=== PATIENT | female | born 1970 | race Caucasian/White ===

== ENCOUNTER 2017-03-07 13:26 | Emergency (ER) | payer OTHER ==
[2017-03-07 13:53] VITALS: BMI 30.4
[2017-03-07 14:24] LABS: BASOPHIL 0.4 % (0-2.0); EOSINOPHIL 0.8 % (0-4.5); MCH 28.8 pg (25.7-33.7); MCHC 32.5 g/dl (32.0-36.0); MEAN CELL VOLUME 88.4 fl (80-96); MEAN PLT VOLUME 7.9 fl (7.5-11.1); NEUTROPHILS 82.4 % (42.8-82.8); PLATELET COUNT 214 K/MM3 (134-434); RDW 13.8 % (11.6-15.6); WHITE BLOOD COUNT 14.2 K/mm3 (4.0-10.0)
[2017-03-07 14:42] LABS: URINE APPEARANCE CLOUDY; URINE BILIRUBIN NEGATIVE (NEGATIVE); URINE COLOR LTYELLOW; URINE GLUCOSE (UA) NEGATIVE (NEGATIVE); URINE KETONE NEGATIVE (NEGATIVE); URINE NITRITE NEGATIVE (NEGATIVE); URINE UROBILINOGEN NEGATIVE E.U./dl (0.2-1.0)
[2017-03-07 14:46] LABS: ALBUMIN 3.5 g/dl (3.4-5.0); ANION GAP 12 (8-16); BILIRUBIN,TOTAL 0.5 mg/dL (0.2-1.0); CALCIUM 8.7 mg/dL (8.5-10.1); CO2 22 mmol/L (21-32); CREATININE 1.3 mg/dL (0.55-1.02); GLUCOSE,RANDOM 90 mg/dL (74-106); SGPT/ALT 19 U/L (12-78); TOT PROT 7.8 g/dl (6.4-8.2)
[2017-03-07 14:47] LABS: ALK PHOS 114 U/L (45-117)
[2017-03-07 14:49] LABS: SGOT/AST 34 U/L (15-37)
[2017-03-07 14:50] LABS: URINE BLOOD 2+ (NEGATIVE); URINE LEUK ESTERASE 3+ (NEGATIVE); URINE PROTEIN 1+ (NEGATIVE)
[2017-03-07 14:58] LABS: URINE BACTERIA MANY /hpf (NONE SEEN); URINE MUCUS RARE; URINE RBC 19 /hpf (0-3); URINE WBC 441 /hpf (3-5)
[2017-03-07] MEDS ORDERED: LEVOFLOXACIN 750 MG IVPB 150 ML IVPB ONE ×2 (15:17→15:28)
[2017-03-07] MEDS ORDERED: amLODIPine BESYLATE 10 MG TABLET (FP) PO ONE (15:30)
[2017-03-07] MEDS ORDERED: LISINOPRIL 20 MG TABLET (FP) PO ONE (15:30)
[2017-03-07] MEDS ORDERED: traMADol HCL 50 MG TABLET PO ONE (15:39)
--- NOTE | 2017-03-07 15:39 | PDOC ---
History of Present Illness - General History Source: Patient - History of Present Illness Timing/Duration: reports: constant Quality: reports: severe Abdominal Pain Onset Location: reports: flank <Keke GrahamGordon - Last Filed: 03/07/17 17:39> <Mick Starkey - Last Filed: 03/08/17 09:31> - General Chief Complaint: Pain, Acute Stated Complaint: HIGH BLOOD PRESSURE Time Seen by Provider: 03/07/17 14:00 Past History - Past Medical History Anemia: Yes HTN: Yes - Surgical History Appendectomy: Yes - Psycho/Social/Smoking Cessation Hx Anxiety: No Suicidal Ideation: No Smoking Status: No Smoking History: Never smoked Number of Cigarettes Smoked Daily: 0 Hx Alcohol Use: No Drug/Substance Use Hx: No Substance Use Type: None <Keke GrahamGordon - Last Filed: 03/07/17 17:39> <Mick Starkey - Last Filed: 03/08/17 09:31> - Past Medical History Allergies/Adverse Reactions: Allergies Allergy/AdvReac Type Severity Reaction Status Date / Time ampicillin [Ampicillin] Allergy Rash Verified 03/07/17 13:53 Home Medications: Ambulatory Orders Lisinopril 20 mg PO DAILY #0 tablet 02/13/12 Allopurinol [Zyloprim -] 100 mg PO DAILY 09/23/15 Amlodipine Besylate [Norvasc] 10 mg PO DAILY 09/23/15 Allopurinol [Zyloprim -] 100 mg PO DAILY #30 tablet 03/07/17 Amlodipine Besylate [Norvasc -] 5 mg PO DAILY #30 tablet 03/07/17 Ciprofloxacin [Cipro -] 500 mg PO Q12H #14 tablet 03/07/17 Lisinopril [Prinivil] 20 mg PO DAILY #30 tablet 03/07/17 Review of Systems - Review of Systems Constitutional: No: Chills, Fever ABD/GI: No: Nausea, Vomiting : Yes: Flank Pain. No: Burning, Dysuria, Frequency, Hematuria <GladysChelseaGordon Last Filed: 03/07/17 17:39> *Physical Exam - Vital Signs Last Vital Signs Temp Pulse Resp BP Pulse Ox 98.5 F 84 18 187/91 100 03/07/17 13:30 03/07/17 13:30 03/07/17 13:30 03/07/17 13:30 03/07/17 13:30 - Physical Exam General Appearance: Yes: Appropriately Dressed. No: Apparent Distress HEENT: positive: Normal Voice Neck: positive: Supple Respiratory/Chest: negative: Respiratory Distress Gastrointestinal/Abdominal: positive: Soft. negative: Tender Musculoskeletal: positive: Normal Inspection. negative: CVA Tenderness Integumentary: positive: Dry, Warm Neurologic: positive: Fully Oriented, Alert, Normal Mood/Affect <Vita Graham - Last Filed: 03/07/17 17:39> - Vital Signs Last Vital Signs Temp Pulse Resp BP Pulse Ox 99.2 F 94 H 18 142/84 99 03/07/17 18:35 03/07/17 18:35 03/07/17 18:35 03/07/17 18:35 03/07/17 18:35 <Mick Starkey - Last Filed: 03/08/17 09:31> ED Treatment Course - LABORATORY CBC & Chemistry Diagram: 03/07/17 14:10 03/07/17 14:10 - ADDITIONAL ORDERS Additional order review: Laboratory Results 03/07/17 03/07/17 14:20 14:10 Sodium 144 Potassium 5.2 H D Chloride 110 H Carbon Dioxide 22 Anion Gap 12 BUN 30 H D Creatinine 1.3 H D Creat Clearance w eGFR 44.10 Random Glucose 90 Calcium 8.7 Total Bilirubin 0.5 D AST 34 D ALT 19 D Alkaline Phosphatase 114 D Total Protein 7.8 Albumin 3.5 Urine Color Ltyellow Urine Appearance Cloudy Urine pH 6.0 Urine Protein 1+ H Urine Glucose (UA) Negative Urine Ketones Negative Urine Blood 2+ H Urine Nitrite Negative Urine Bilirubin Negative Urine Urobilinogen Negative Ur Leukocyte Esterase 3+ H Urine RBC 19 Urine WBC 441 Urine Bacteria Many Urine Mucus Rare 03/07/17 14:10 RBC 4.17 MCV 88.4 MCHC 32.5 RDW 13.8 MPV 7.9 Neutrophils % 82.4 Lymphocytes % 9.7 D Monocytes % 6.7 Eosinophils % 0.8 Basophils % 0.4 <Vita Graham - Last Filed: 03/07/17 17:39> - LABORATORY CBC & Chemistry Diagram: 03/07/17 14:10 03/07/17 14:10 - ADDITIONAL ORDERS Additional order review: 03/07/17 14:10 RBC 4.17 MCV 88.4 MCHC 32.5 RDW 13.8 MPV 7.9 Neutrophils % 82.4 Lymphocytes % 9.7 D Monocytes % 6.7 Eosinophils % 0.8 Basophils % 0.4 - Medications Given in the ED: ED Medications Discontinued Medications Generic Name Dose Route Start Last Admin Trade Name Zoie PRN Reason Stop Dose Admin Amlodipine Besylate 10 mg 03/07/17 15:30 03/07/17 15:54 Norvasc - PO 03/07/17 15:31 10 mg ONCE ONE Administration Levofloxacin 150 mls @ 100 mls/hr 03/07/17 15:17 03/07/17 15:54 Levaquin 750 Mg Premixed Ivpb - IVPB 03/07/17 16:46 100 mls/hr ONCE ONE Administration Sodium Chloride 1,000 mls @ 1,000 mls/hr 03/07/17 15:41 03/07/17 16:18 Normal Saline - IV 03/07/17 16:40 1,000 mls/hr ASDIR STA Administration Lisinopril 20 mg 03/07/17 15:30 03/07/17 15:54 Prinivil PO 03/07/17 15:31 20 mg ONCE ONE Administration Tramadol HCl 50 mg 03/07/17 15:39 03/07/17 16:18 Ultram - PO 03/07/17 15:40 50 mg ONCE ONE Administration <Mick Starkey - Last Filed: 03/08/17 09:31> Medical Decision Making - Medical Decision Making 03/07/17 15:34 46-year-old female, history of hypertension, chronic kidney disease, recurrent utis, awoke with severe right flank pain this a.m. Denies urinary frequency, dysuria, hematuria, nausea, vomiting, fever and chills. Patient aware that BP elevated triage and admits that she has recently ran out of her medication. Denies headache, dizziness, chest pain or shortness of breath. See exam Pyelo Leukocytosis w/ dirty ua -IV abx (pen allergic) -m/l can de discharged on abx (will review previous sensitivities) Elevated BP Asx No worsening in CKD -dose of home meds given in ED -will refill rxs and encourage pmd f/u 03/07/17 15:39 03/07/17 17:25 Pt reports feeling better. Rpt BP improved w/ meds. Will dc w/ rx for abx and refill of home meds. Pt instructed to return for worsening of symptoms. otherwise to f/u with her PMD 03/07/17 17:39 <Vita Grahma - Last Filed: 03/07/17 17:39> - Medical Decision Making 03/08/17 09:30 The patient was seen and evaluated in conjunction with MARIN Graham under my direct supervision, ancillary studies were reviewed. I agree with the plan as outlined by MARIN Graham . <Mick Starkey - Last Filed: 03/08/17 09:31> *DC/Admit/Observation/Transfer <Vita Graham - Last Filed: 03/07/17 17:39> <Mick Starkey - Last Filed: 03/08/17 09:31> Diagnosis at time of Disposition: Pyelonephritis, Elevated blood pressure reading - Discharge Dispostion Disposition: HOME Condition at time of disposition: Improved - Prescriptions Prescriptions: Ciprofloxacin [Cipro -] 500 mg PO Q12H #14 tablet Amlodipine Besylate [Norvasc -] 5 mg PO DAILY #30 tablet Lisinopril [Prinivil] 20 mg PO DAILY #30 tablet Allopurinol [Zyloprim -] 100 mg PO DAILY #30 tablet - Referrals Referrals: Lakisha Aguilar MD [Primary Care Provider] - - Patient Instructions Printed Discharge Instructions: DI for Kidney Infection Additional Instructions: Take medications as prescribed and return to ER for worsening of symptoms. Otherwise follow-up with your doctor
[2017-03-07] MEDS ORDERED: SODIUM CHLORIDE 1,000 ML IV STA (15:41)
[2017-03-07] MEDS ORDERED: LISINOPRIL 20 MG TABLET (FP) ONE (15:43)
[2017-03-07] MEDS ORDERED: amLODIPine BESYLATE 5 MG TABLET (FP) ONE (15:43)
--- NOTE | 2017-03-07 15:54 | EKG ---
Test Reason : Blood Pressure : / mmHG Vent. Rate : 072 BPM Atrial Rate : 072 BPM P-R Int : 136 ms QRS Dur : 084 ms QT Int : 384 ms P-R-T Axes : 016 -13 032 degrees QTc Int : 420 ms NORMAL SINUS RHYTHM CANNOT RULE OUT ANTERIOR INFARCT , AGE UNDETERMINED ABNORMAL ECG WHEN COMPARED WITH ECG OF 04-FEB-2012 14:07, NO SIGNIFICANT CHANGE WAS FOUND Confirmed by AIMEE FOWLER MD ([id number]) on 03/07/2017 3:53:50 PM Referred By: Confirmed By:AIMEE FOWLER MD
[2017-03-07] MEDS ORDERED: traMADol HCL 50 MG TABLET ONE (16:11)
[2017-03-07 16:57] LABS: YEAST MANY
[2017-03-07 18:36] VITALS: BP 142/84; PULSE 94; TEMP 99.2
== END 2017-03-07 18:36 | disposition home or self-care (01) ==
LOC: JER 13:26
PROC: 3E0337Z Introduction of Electrolytic and Water Balance Substance into Peripheral Vein, Percutaneous Approach (ICD-10-PCS; principal; 2017-03-07)
PROC: 3E03329 Introduction of Other Anti-infective into Peripheral Vein, Percutaneous Approach (ICD-10-PCS; 2017-03-07)
DX: N12 Tubulo-interstitial nephritis, not specified as acute or chronic (principal); I12.9 Hypertensive chronic kidney disease with stage 1 through stage 4 chronic kidney disease, or unspecified chronic kidney disease; N18.9 Chronic kidney disease, unspecified
CPT/HCPCS: 36415; 80053; 81003; 81015; 85025; 87086; 93005; 93010; 99282-25

== ENCOUNTER 2017-09-03 08:18 | Emergency (ER) | payer OTHER ==
[2017-09-03 08:32] VITALS: BP 120/68; PULSE 87; TEMP 99.2; BMI 32.4
--- NOTE | 2017-09-03 10:02 | PDOC ---
History of Present Illness - General Chief Complaint: Back Pain Stated Complaint: LOWER BACK Time Seen by Provider: 09/03/17 09:08 History Source: Patient Exam Limitations: No Limitations - History of Present Illness Initial Comments: 09/03/17 09:57 Patient here with complaints, tearful with back pain related to dysuria. States onset was approximately 2 days ago and is progressively worsened. is been up every hour with small amounts of urine that is progressively become worse and and painful. has had 2 urinary tract infections already this past year. Most recently 2 months ago. was supposed to follow up with urologist for further evaluation for frequent UTIs but has not. Denies fever, but states feels mildly nauseous. Denies any history of kidney stone, no hematuria, states is just painful burning and frequent with small amounts of urine. Denies any bowel changes, is not sexually active and has no vaginal complaints Timing/Duration: unsure Severity: moderate Associated Symptoms: reports: denies symptoms Past History - Travel Traveled outside of the country in the last 30 days: No Close contact w/someone who was outside of country & ill: No - Past Medical History Allergies/Adverse Reactions: Allergies Allergy/AdvReac Type Severity Reaction Status Date / Time ampicillin [Ampicillin] Allergy Rash Verified 09/03/17 08:29 Home Medications: Ambulatory Orders Lisinopril 20 mg PO DAILY #0 tablet 02/13/12 Allopurinol [Zyloprim -] 100 mg PO DAILY 09/23/15 Amlodipine Besylate [Norvasc] 10 mg PO DAILY 09/23/15 Allopurinol [Zyloprim -] 100 mg PO DAILY #30 tablet 03/07/17 Amlodipine Besylate [Norvasc -] 5 mg PO DAILY #30 tablet 03/07/17 Ciprofloxacin [Cipro -] 500 mg PO Q12H #14 tablet 03/07/17 Lisinopril [Prinivil] 20 mg PO DAILY #30 tablet 03/07/17 Nitrofurantoin Monohyd/M-Cryst [Macrobid -] 100 mg PO BID #14 capsule 09/03/17 Anemia: Yes COPD: No HTN: Yes - Surgical History Appendectomy: Yes - Suicide/Smoking/Psychosocial Hx Smoking Status: No Smoking History: Never smoked Number of Cigarettes Smoked Daily: 0 Information on smoking cessation initiated: No Hx Alcohol Use: No Drug/Substance Use Hx: No Substance Use Type: None Review of Systems - Review of Systems Able to Perform ROS?: Yes Is the patient limited Afghan proficient: Yes Constitutional: Yes: Symptoms Reported, See HPI, Chills, Fever, Malaise HEENTM: Yes: See HPI. No: Symptoms Reported Respiratory: Yes: See HPI. No: Symptoms reported ABD/GI: Yes: Symptoms Reported, See HPI, Nausea : Yes: Symptoms Reported, See HPI, Burning, Dysuria, Frequency. No: Hematuria Musculoskeletal: No: Symptoms Reported All Other Systems: Reviewed and Negative *Physical Exam - Vital Signs Last Vital Signs Temp Pulse Resp BP Pulse Ox 99.2 F 87 18 120/68 100 09/03/17 08:29 09/03/17 08:29 09/03/17 08:29 09/03/17 08:29 09/03/17 08:29 - Physical Exam General Appearance: Yes: Nourished, Appropriately Dressed, Apparent Distress HEENT: positive: SEDRICK, Normal ENT Inspection, TMs Normal, Pharynx Normal Neck: positive: Supple. negative: Lymphadenopathy (R), Lymphadenopathy (L) Respiratory/Chest: positive: Lungs Clear, Normal Breath Sounds Cardiovascular: positive: Regular Rhythm Gastrointestinal/Abdominal: positive: Normal Bowel Sounds, Soft. negative: Tender Musculoskeletal: positive: Normal Inspection, CVA Tenderness, CVA Tenderness (R) Extremity: positive: Normal Capillary Refill, Normal Inspection, Normal Range of Motion Integumentary: positive: Normal Color, Dry, Warm, Pale Neurologic: positive: receptionist secretary II-XII NML intact, Fully Oriented, Alert, Normal Mood/ Affect, Normal Response, Motor Strength 5/5 *DC/Admit/Observation/Transfer Diagnosis at time of Disposition: UTI (urinary tract infection) Qualifiers: Urinary tract infection type: acute cystitis Hematuria presence: without hematuria Qualified Code(s): N30.00 - Acute cystitis without hematuria - Discharge Dispostion Disposition: HOME Condition at time of disposition: Stable Admit: No - Prescriptions Prescriptions: Nitrofurantoin Monohyd/M-Cryst [Macrobid -] 100 mg PO BID #14 capsule - Referrals Referrals: Lakisha Aguilar MD [Primary Care Provider] - Arun Granados MD [Staff Physician] - - Patient Instructions Printed Discharge Instructions: DI for Urinary Tract Infection (UTI) Additional Instructions: Rest, drink lots of fluids: Teas, water, soups Avoid contact with others until fevers and symptoms resolved Lots of handwashing and good hygiene Continue [id number] medications for symptomatic relief Tylenol or Motrin for fever and pain Continue all of antibiotics until completed Followup with private physician in one week for repeat urinalysis/reevaluation Return to emergency department for worsened symptoms, fevers, dehydration - Post Discharge Activity Forms/Work/School Notes: Back to Work
[2017-09-03 10:03] LABS: URINE APPEARANCE TURBID; URINE BILIRUBIN NEGATIVE (NEGATIVE); URINE BLOOD 2+ (NEGATIVE); URINE COLOR YELLOW; URINE GLUCOSE (UA) NEGATIVE (NEGATIVE); URINE KETONE NEGATIVE (NEGATIVE); URINE NITRITE NEGATIVE (NEGATIVE); URINE UROBILINOGEN NEGATIVE mg/dL (0.2-1.0)
[2017-09-03 10:17] LABS: URINE LEUK ESTERASE 3+ (NEGATIVE); URINE PROTEIN 2+ (NEGATIVE)
[2017-09-03 10:19] LABS: URINE RBC 59 /hpf (0-3); URINE WBC 1599 /hpf (3-5); YEAST MANY
[2017-09-03] MEDS ORDERED: NITROFURANTOIN MACROCRYSTAL 50 MG CAPSULE (FP) ONE (10:36)
[2017-09-03] MEDS ORDERED: NITROFURANTOIN MACROCRYSTAL 50 MG CAPSULE (FP) PO SCH (10:45)
[2017-09-03 14:05] LABS: URINE LEUK ESTERASE 3+ (NEGATIVE)
== END 2017-09-03 11:21 | disposition home or self-care (01) ==
LOC: JERFT 08:18
DX: N30.00 Acute cystitis without hematuria (principal); B96.20 Unspecified Escherichia coli [E. coli] as the cause of diseases classified elsewhere
CPT/HCPCS: 81003; 81015; 87086; 87186; 99281-25